=== PATIENT | female | born 1985 ===

== ENCOUNTER 2018-02-15 13:21 | Emergency (ER) | payer MEDICAID ==
[2018-02-15 13:22] VITALS: BMI 24.0
[2018-02-15 13:30] VITALS: BP 122/82; PULSE 88; RESP 18; TEMP 98.3; O2SAT 100
--- NOTE | 2018-02-15 14:06 | ED PDOC ---
Arrival/HPI - General Chief Complaint: Back Pain Time Seen by Provider: 02/15/18 13:45 Historian: Patient - History of Present Illness Narrative History of Present Illness (Text): 02/15/18 14:00 33 year old female whose PMH includes chronic back pain, who presents to the emergency department complaining of back pain with no recent trauma. Patient reports being due for outpatient MRI but came to emergency department instead. Patient has no other complaints. Time/Duration: < week Symptom Onset: Gradual Symptom Course: Unchanged Past Medical History - Provider Review Nursing Documentation Reviewed: Yes - Infectious Disease Hx of Infectious Diseases: None - Tetanus Immunization Tetanus Immunization: Up to Date - Past Medical History Past Medical History: No Previous - Cardiac Hx Cardiac Disorders: No - Pulmonary Hx Bronchitis: Yes - Neurological Hx Neurological Disorder: No - HEENT Hx HEENT Disorder: No - Renal Hx Renal Disorder: No - Endocrine/Metabolic Hx Endocrine Disorders: No - Hematological/Oncological Hx Blood Disorders: No - Integumentary Hx Dermatological Disorder: Yes Other/Comment: LEFT BREAST MASS. - Musculoskeletal/Rheumatological Hx Back Pain: Yes - Gastrointestinal Hx Gastrointestinal Disorders: No - Genitourinary/Gynecological Hx Genitourinary Disorders: No - Psychiatric Hx Anxiety: Yes Hx Substance Use: Yes (marijuana) - Past Surgical History Past Surgical History: No Previous - Surgical History Other/Comment: multiple elina breast sx - Anesthesia Hx Anesthesia: Yes Hx Anesthesia Reactions: No Hx Malignant Hyperthermia: No - Suicidal Assessment Feels Threatened In Home Enviroment: No Family/Social History - Physician Review Nursing Documentation Reviewed: Yes Family/Social History: Unknown Family HX Smoking Status: Former Smoker Hx Alcohol Use: No Hx Substance Use: Yes (marijuana) Substance used: marijuana Allergies/Home Meds Allergies/Adverse Reactions: Allergies No Known Allergies Allergy (Verified 01/22/18 12:17) Home Medications: Home Meds Medication Instructions Recorded Confirmed Amoxicillin [Amoxil 500 mg Cap] 1 cap PO TID 02/15/18 02/15/18 Gabapentin [Gabapentin] 1 cap PO TID 02/15/18 02/15/18 Tizanidine HCl [Zanaflex] 1 tab PO HS 02/15/18 02/15/18 Review of Systems - Physician Review All systems were reviewed & negative as marked: Yes - Review of Systems Respiratory: absent: SOB Cardiovascular: absent: Chest Pain Musculoskeletal: Back Pain Physical Exam Vital Signs Reviewed: Yes Vital Signs Temp Pulse Resp BP Pulse Ox 02/15/18 13:30 98.3 F 88 18 122/82 100 Temperature: Afebrile Blood Pressure: Normal Pulse: Regular Respiratory Rate: Normal Appearance: Positive for: Well-Appearing, Non-Toxic, Comfortable Pain Distress: None Mental Status: Positive for: Alert and Oriented X 3 - Systems Exam Head: Present: Atraumatic, Normocephalic Pupils: Present: PERRL Extroacular Muscles: Present: EOMI Conjunctiva: Present: Normal Back: Present: Paraspinal Tenderness (paralumbar tenderness). No: CVA Tenderness Neurological: Present: GCS=15, CN II-XII Intact, Speech Normal Skin: Present: Warm, Dry, Normal Color. No: Rashes Psychiatric: Present: Alert, Oriented x 3, Normal Insight, Normal Concentration Medical Decision Making ED Course and Treatment: 02/15/18 Impression: 33 year old female with paralumbar tenderness complaining of back pain. Plan: -- Flexeril and Toradol -- Reassess and disposition Progress Notes: 02/15/18 15:24 chornic pain , no saddle anesthesia, neuro intact, steady gait. advise cont outpt management. - Medication Orders Current Medication Orders: Discontinued Medications Cyclobenzaprine HCl (Flexeril) 10 mg PO STAT STA Stop: 02/15/18 13:58 Last Admin: 02/15/18 14:10 Dose: 10 mg Ketorolac Tromethamine (Toradol) 30 mg IM STAT STA Stop: 02/15/18 13:58 Last Admin: 02/15/18 14:10 Dose: 30 mg MAR Pain Assessment Document 02/15/18 14:10 [facility] (Rec: 02/15/18 14:10 [facility] [id number]) Pain Reassessment Is this a pain reassessment? No Sleep Is patient sleeping during reassessment? No Presence of Pain Presence of Pain Yes Pain Scale Used Pain Scale Used Numeric Location Pain Location Body Site Back Description Description Sharp Intensity of Pain at present 10 IM Administration Charges Document 02/15/18 14:10 [facility] (Rec: 02/15/18 14:10 [facility] [id number]) Charges for Administration # of IM Administrations 1 - Scribe Statement The provider has reviewed the documentation as recorded by the [place] Kathleen Savage Provider Scribe Attestation: All medical record entries made by the Scribe were at my direction and personally dictated by me. I have reviewed the chart and agree that the record accurately reflects my personal performance of the history, physical exam, medical decision making, and the department course for this patient. I have also personally directed, reviewed, and agree with the discharge instructions and disposition. Disposition/Present on Arrival - Present on Arrival Any Indicators Present on Arrival: No History of DVT/PE: No History of Uncontrolled Diabetes: No Urinary Catheter: No History of Decub. Ulcer: No History Surgical Site Infection Following: None - Disposition Have Diagnosis and Disposition been Completed?: Yes Diagnosis: Low back pain, Chronic low back pain Disposition: HOME/ ROUTINE Disposition Time: 01:00 Condition: STABLE Discharge Instructions (ExitCare): Chronic Pain (DC) Additional Instructions: please follow up with your doctor. return to er with worsening symptoms or concerns. Prescriptions: Cyclobenzaprine [Cyclobenzaprine HCl] 10 mg PO DAILY PRN #10 tab PRN Reason: Muscle Spasm Naproxen 500 mg PO BID PRN #14 tab PRN Reason: Pain, Mild (1-3) Referrals: Rick Casillas MD [Primary Care Provider] - Follow up with primary Visco,Rio Salazar MD [Staff Provider] - Follow up with primary Forms: [employer] (Kinyarwanda)
== END 2018-02-15 14:22 | disposition home or self-care (01) ==
LOC: ED 13:21
DX: G89.29 Other chronic pain (principal); M54.5 Low back pain; Z87.891 Personal history of nicotine dependence
CPT/HCPCS: 96372; 99282; J1885

== ENCOUNTER 2018-03-23 01:59 | Emergency (ER) | payer MEDICAID ==
[2018-03-23 01:59] VITALS: BMI 24.0
[2018-03-23 02:25] VITALS: RESP 18; TEMP 98.4; O2SAT 100
[2018-03-23] MEDS ORDERED: oxyCODONE 10 mg Immediate Release Tab PO STA (03:01)
--- NOTE | 2018-03-23 03:02 | ED PDOC ---
Arrival/HPI - General Chief Complaint: Back Pain Time Seen by Provider: 03/23/18 03:01 - History of Present Illness Narrative History of Present Illness (Text): 03/23/18 03:06 33 year old female, whose past medical history includes chronic back pain s/p lumbar discectomy and multiple breast abscesses (12 I&Ds), presents to the emergency department complaining of uncontrolled chronic back pain. Patient states she had a recent MRI done by Dr. Bower and has an appointment tomorrow to see him. She also reports pain management team awaits approval for injections , but states she cannot handle the pain anymore. Patient also reports left sided neck pain, but denies any fever, chills, chest pain, shortness of breath, abdominal pain, nausea, vomiting, diarrhea, urinary symptoms, headache, dizziness, or any other complaints. Past Medical History - Provider Review Nursing Documentation Reviewed: Yes - Infectious Disease Hx of Infectious Diseases: None - Tetanus Immunization Tetanus Immunization: Up to Date - Past Medical History Past Medical History: No Previous - Cardiac Hx Cardiac Disorders: No - Pulmonary Hx Bronchitis: Yes - Neurological Hx Neurological Disorder: No - HEENT Hx HEENT Disorder: No - Renal Hx Renal Disorder: No - Endocrine/Metabolic Hx Endocrine Disorders: No - Hematological/Oncological Hx Blood Disorders: No - Integumentary Hx Dermatological Disorder: Yes Other/Comment: LEFT BREAST MASS. - Musculoskeletal/Rheumatological Hx Back Pain: Yes - Gastrointestinal Hx Gastrointestinal Disorders: No - Genitourinary/Gynecological Hx Genitourinary Disorders: No - Psychiatric Hx Anxiety: Yes Hx Substance Use: Yes (marijuana this am) - Past Surgical History Past Surgical History: No Previous - Surgical History Hx Breast Biopsy: Yes Other/Comment: multiple elina breast sx - Anesthesia Hx Anesthesia: Yes Hx Anesthesia Reactions: No Hx Malignant Hyperthermia: No - Suicidal Assessment Feels Threatened In Home Enviroment: No Family/Social History - Physician Review Nursing Documentation Reviewed: Yes Family/Social History: No Known Family HX Smoking Status: Former Smoker Hx Alcohol Use: No Hx Substance Use: Yes (marijuana this am) Substance used: marijuana Allergies/Home Meds Allergies/Adverse Reactions: Allergies No Known Allergies Allergy (Verified 03/23/18 02:18) Home Medications: Home Meds Medication Instructions Recorded Confirmed No Known Home Med 03/23/18 03/23/18 Review of Systems - Physician Review All systems were reviewed & negative as marked: Yes - Review of Systems Constitutional: absent: Fevers Cardiovascular: absent: Chest Pain Physical Exam - Physical Exam Narrative Physical Exam (Text): Constitutional: No acute distress. Head: Normocephalic. Atraumatic. Eyes: PERRL. ENT: Moist mucous membranes. Neck: Supple. Cardiovascular: Regular rate. Chest: No tenderness. Respiratory: Clear to auscultation bilaterally. GI: Soft. Nontender. Nondistended. Back: No CVA tenderness. Diffuse Paraspinal Tenderness Musculoskeletal: No tenderness or swelling of extremities. Skin: No rash. Neurologic: Alert, no focal deficit. Vital Signs Temp Pulse Resp BP Pulse Ox 03/23/18 03:23 70 18 118/79 100 03/23/18 02:19 98.4 F 69 18 116/69 100 Medical Decision Making ED Course and Treatment: 03/23/18 03:06 Impression: 33 year old female presents complaining of worsening chronic lower back pain. Patient is also complaining of left-sided neck pain. Plan: -- Oxycodone Tab -- Reassess and disposition Prior Visits: Notes and results from previous visits were reviewed. On 02/15/18 patient came in complaining of chronic back pain. Patient was discharged. Progress Notes: - Medication Orders Current Medication Orders: Discontinued Medications Oxycodone HCl (Oxycodone Immediate Release Tab) 10 mg PO STAT STA Stop: 03/23/18 03:02 Last Admin: 03/23/18 03:08 Dose: 10 mg - Scribe Statement The provider has reviewed the documentation as recorded by the Destiny Mustafa Provider Scribe Attestation: All medical record entries made by the Destiny were at my direction and personally dictated by me. I have reviewed the chart and agree that the record accurately reflects my personal performance of the history, physical exam, medical decision making, and the department course for this patient. I have also personally directed, reviewed, and agree with the discharge instructions and disposition. Disposition/Present on Arrival - Present on Arrival Any Indicators Present on Arrival: No History of DVT/PE: No History of Uncontrolled Diabetes: No Urinary Catheter: No History of Decub. Ulcer: No History Surgical Site Infection Following: None - Disposition Have Diagnosis and Disposition been Completed?: Yes Diagnosis: Chronic back pain Disposition: HOME/ ROUTINE Disposition Time: 03:02 Patient Plan: Discharge Condition: STABLE Discharge Instructions (ExitCare): Chronic Pain Referrals: Jason Bower MD [Staff Provider] - Follow up with primary Forms: [employer] (Turkmen)
[2018-03-23 03:25] VITALS: BP 118/79; PULSE 70
== END 2018-03-23 03:24 | disposition home or self-care (01) ==
LOC: ED 01:59
DX: M54.9 Dorsalgia, unspecified (principal); G89.29 Other chronic pain

== ENCOUNTER → 2018-05-17 | Emergency (ER) | payer MEDICAID ==
[2018-05-17 11:44] VITALS: BMI 24.0
[2018-05-17 12:00] VITALS: RESP 18; TEMP 99.2
[2018-05-17 12:42] VITALS: BP 111/71; PULSE 79; O2SAT 98
--- NOTE | 2018-05-17 12:45 | ED PDOC ---
Arrival/HPI - General Chief Complaint: Back Pain Time Seen by Provider: 05/17/18 12:29 Historian: Patient - History of Present Illness Narrative History of Present Illness (Text): 05/17/18 12:39 33 year old female, whose past medical history includes bronchitis, chronic back pain s/p lumbar discectomy and multiple breast abscesses (12 I&Ds), presents to the emergency department complaining of chronic back pain and upper chest wall "soreness" since yesterday. Patient informs worsening pain from her baseline, radiating to her buttocks. Patient denies taking any pain medication for the symptoms and requests medical evaluation. Patient states she recently had a MRI of cervical spine performed for chronic neck discomfort. Patient denies any trauma, fever, chills, nausea, vomiting, abdominal pain, chest pain, shortness of breath or any other complaints. Patient informs on and off compliance with her physical therapy. Time/Duration: 24 hours Symptom Onset: Gradual Symptom Course: Worsening Quality: Aching Past Medical History - Provider Review Nursing Documentation Reviewed: Yes - Infectious Disease Hx of Infectious Diseases: None - Tetanus Immunization Tetanus Immunization: Up to Date - Reproductive Menopause: No - Past Medical History Past Medical History: No Previous - Cardiac Hx Cardiac Disorders: No - Pulmonary Hx Bronchitis: Yes - Neurological Hx Neurological Disorder: No - HEENT Hx HEENT Disorder: No - Renal Hx Renal Disorder: No - Endocrine/Metabolic Hx Endocrine Disorders: No - Hematological/Oncological Hx Blood Disorders: No - Integumentary Hx Dermatological Disorder: Yes Other/Comment: LEFT BREAST MASS. - Musculoskeletal/Rheumatological Hx Back Pain: Yes - Gastrointestinal Hx Gastrointestinal Disorders: No - Genitourinary/Gynecological Hx Genitourinary Disorders: No - Psychiatric Hx Anxiety: Yes Hx Substance Use: Yes (marijuana this am) - Past Surgical History Past Surgical History: No Previous - Surgical History Other/Comment: back surgery - Anesthesia Hx Anesthesia: Yes Hx Anesthesia Reactions: No Hx Malignant Hyperthermia: No - Suicidal Assessment Feels Threatened In Home Enviroment: No Family/Social History - Physician Review Nursing Documentation Reviewed: Yes Family/Social History: No Known Family HX Smoking Status: Former Smoker Hx Alcohol Use: No Hx Substance Use: Yes (marijuana this am) Substance used: marijuana Allergies/Home Meds Allergies/Adverse Reactions: Allergies No Known Allergies Allergy (Verified 03/23/18 02:18) Home Medications: Home Meds Medication Instructions Recorded Confirmed No Known Home Med 03/23/18 05/17/18 Review of Systems - Physician Review All systems were reviewed & negative as marked: Yes - Review of Systems Constitutional: absent: Fevers Respiratory: absent: SOB Cardiovascular: absent: Chest Pain Gastrointestinal: absent: Abdominal Pain, Nausea, Vomiting Musculoskeletal: Back Pain, Other (upper chest wall soreness) Physical Exam Vital Signs Reviewed: Yes Vital Signs Temp Pulse Resp BP Pulse Ox 05/17/18 12:41 79 18 111/71 98 05/17/18 11:54 99.2 F 86 18 109/76 100 Temperature: Afebrile Blood Pressure: Normal Pulse: Regular Respiratory Rate: Normal Appearance: Positive for: Well-Appearing, Non-Toxic, Comfortable Pain Distress: Mild Mental Status: Positive for: Alert and Oriented X 3 - Systems Exam Head: Present: Atraumatic, Normocephalic Pupils: Present: PERRL Extroacular Muscles: Present: EOMI Conjunctiva: Present: Normal Neck: Present: Normal Range of Motion Respiratory/Chest: Present: Clear to Auscultation, Good Air Exchange. No: Respiratory Distress, Accessory Muscle Use Cardiovascular: Present: Regular Rate and Rhythm, Normal S1, S2, Other (mild upper chest wall tenderness to palpation.). No: Murmurs Abdomen: No: Tenderness, Distention, Peritoneal Signs Back: Present: Normal Inspection Upper Extremity: Present: Normal Inspection. No: Cyanosis, Edema Lower Extremity: Present: Normal Inspection. No: Edema Neurological: Present: GCS=15, CN II-XII Intact, Speech Normal Skin: Present: Warm, Dry, Normal Color. No: Rashes Psychiatric: Present: Alert, Oriented x 3, Normal Insight, Normal Concentration Medical Decision Making ED Course and Treatment: 05/17/18 12:36 Impression: 33 year old female presents to the emergency department for worsening chronic back pain and upper chest wall "soreness". Plan: -- Toradol -- Reassess and disposition Prior Visits: Notes and results from previous visits were reviewed. Patient was last seen here in the emergency department on 03/23/18 for chronic back pain exacerbation. Patient was discharged home after improvement. Progress Notes: Patient given IM toradol and advised to follow up with paim management. 05/17/18 13:27 Patient eloped from the emergency department prior to receiving discharge papers. - Medication Orders Current Medication Orders: Discontinued Medications Ketorolac Tromethamine (Toradol) 60 mg IM STAT STA Stop: 05/17/18 12:37 Last Admin: 05/17/18 12:50 Dose: 60 mg MAR Pain Assessment Document 05/17/18 12:50 [facility] (Rec: 05/17/18 12:51 [facility] [id number]) Pain Reassessment Is this a pain reassessment? Yes Presence of Pain Presence of Pain Yes Pain Scale Used Pain Scale Used Numeric Location Upper or Lower Lower Pain Location Body Site Back Description Description Sharp Intensity of Pain at present 10 IM Administration Charges Document 05/17/18 12:50 [facility] (Rec: 05/17/18 12:51 TRE [id number]) Injection Site MAR Injection Site Right Deltoid Charges for Administration # of IM Administrations 1 - Scribe Statement The provider has reviewed the documentation as recorded by the Scribe Gem Gomez. All medical record entries made by the Scribe were at my direction and personally dictated by me. I have reviewed the chart and agree that the record accurately reflects my personal performance of the history, physical exam, medical decision making, and the department course for this patient. I have also personally directed, reviewed, and agree with the discharge instructions and disposition. Disposition/Present on Arrival - Present on Arrival Any Indicators Present on Arrival: No History of DVT/PE: No History of Uncontrolled Diabetes: No Urinary Catheter: No History of Decub. Ulcer: No History Surgical Site Infection Following: None - Disposition Have Diagnosis and Disposition been Completed?: Yes Diagnosis: Chronic pain Disposition: HOME/ ROUTINE Disposition Time: 13:25 Patient Problems: Current Active Problems Problem Status Onset Chronic pain Acute Condition: GOOD Discharge Instructions (ExitCare): Chronic Pain (DC) Additional Instructions: ALEXIA ROTH, thank you for letting us take care of you today. Your provider was Radha Snow MD and you were treated for BACK PAIN/MUSCLE ACHE. The emergency medical care you received today was directed at your acute symptoms. If you were prescribed any medication, please fill it and take as directed. It may take several days for your symptoms to resolve. Return to the Emergency Department if your symptoms worsen, do not improve, or if you have any other problems. Please contact your doctor or call one of the physicians/clinics you have been referred to that are listed on the Patient Visit Information form that is included in your discharge packet. Bring any paperwork you were given at discharge with you along with any medications you are taking to your follow up visit. Our treatment cannot replace ongoing medical care by a primary care provider outside of the emergency department. Thank you for allowing the [facility] team to be part of your care today. If you had an X-Ray or CT scan: A Radiologist will review the ED reading if any change in treatment is needed we will contact you. If you had a blood, urine, or wound culture: It will take several days for the results, if any change in treatment is needed we will contact you. If you had an STI test: It will take 48 hours for the results. Please call after 1 week if you have not heard back. Forms: [employer] (Slovak)
== END | disposition home or self-care (01) ==
LOC: ED 11:43
DX: G89.29 Other chronic pain (principal)
CPT/HCPCS: 96372; 99282; J1885